=== PATIENT | female | born 1990 | race Caucasian/White ===

== ENCOUNTER 2017-12-11 15:10 | Emergency (ER) | payer BC, MEDICAID ==
[2017-12-11 16:12] VITALS: BP 100/52
--- NOTE | 2017-12-11 16:53 | EDM.PDOC ---
ED HPI GENERAL MEDICAL PROBLEM - General Chief Complaint: Lower Extremity Injury/Pain Stated Complaint: INJURED TOE Time Seen by Provider: 12/11/17 16:25 Source of Information: Reports: Patient, Family History Limitations: Reports: No Limitations - History of Present Illness INITIAL COMMENTS - FREE TEXT/NARRATIVE: Monica presents today for complaints of pain to right 3rd toe. she reports she jammed the toe when she missed a step. She now complains of pain. She denies any other injury. 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 Psychiatric History: Reports: Anxiety, Depression - Past Surgical History HEENT Surgical History: Reports: Eye Surgery Social & Family History - Tobacco Use Smoking Status *Q: Never Smoker Review of Systems - Review of Systems Review Of Systems: See Below Constitutional: Reports: No Symptoms Eyes: Reports: No Symptoms Ears: Reports: No Symptoms Nose: Reports: No Symptoms Mouth/Throat: Reports: No Symptoms Respiratory: Reports: No Symptoms Cardiovascular: Reports: No Symptoms GI/Abdominal: Reports: No Symptoms Musculoskeletal: Reports: Foot Pain, Other (Pain to right 3rd toe, patient jammed the toe when walking on stairs at 1430 today. ) Skin: Reports: Bruising Neurological: Reports: No Symptoms Psychiatric: Reports: No Symptoms ED EXAM, GENERAL - Physical Exam Exam: See Below Free Text/Narrative:: Monica presents today for complaints of right 3rd toe pain since 1430 when she jammed it on a step. Exam Limited By: No Limitations General Appearance: Alert, WD/WN, Mild Distress Respiratory/Chest: No Respiratory Distress, Lungs Clear, Normal Breath Sounds, No Accessory Muscle Use, Chest Non-Tender Cardiovascular: Normal Peripheral Pulses, Regular Rate, Rhythm, No Edema, No Murmur, No Rub Peripheral Pulses: 2+: Radial (L), Radial (R), Dorsalis Pedis (L), Dorsalis Pedis (R) Extremities: No Pedal Edema, Normal Capillary Refill, Other (Pain to right 3rd toe, limited ROM no other injuries identified. ) Neurological: Alert, Oriented, CN II-XII Intact, Normal Cognition, Normal Gait, No Motor/Sensory Deficits Psychiatric: Normal Affect, Normal Mood Skin Exam: Warm, Dry, Intact, Normal Color, No Rash Course - Vital Signs Last Recorded V/S: Last Vital Signs Temp 36.7 C 12/11/17 16:38 Pulse 67 12/11/17 16:38 Resp 15 12/11/17 16:38 BP 100/52 L 12/11/17 16:38 Pulse Ox 99 12/11/17 16:38 - Orders/Labs/Meds Orders: Active Orders 24 hr Category Date Time Status Toes Third Digit Rt T7 [CR] Stat Exams 12/11/17 16:48 Taken - Radiology Interpretation Free Text/Narrative:: X-ray shows minimally displaced 3rd phalange fracture. We will ciarra tape the toe, provide post-op shoe and referral to podiatry. Departure - Departure Time of Disposition: 17:12 Disposition: Home, Self-Care 01 Condition: Good Clinical Impression: Fracture of third toe, left, closed - Discharge Information Instructions: Toe Fracture, [id number] Referrals: PCP,None [Primary Care Provider] - Forms: ED Department Discharge Additional Instructions: You have been evaluated and treated for closed fracture of the 3rd phalange, minimally displaced. Keep the toe ciarra taped to the 2nd toe at all times. Wear the post op shoe when up and at rest. Follow up with podiatry in the next 7 to 10 days for further management. You may take ibuprofen and acetaminophen as needed for pain. Use rest, ice and elevate your foot to decrease pain. Return to the emergency room for worsening, issues or concerns. - My Orders Last 24 Hours: My Active Orders 12/11/17 16:48 Toes Third Digit Rt T7 [CR] Stat - Assessment/Plan Last 24 Hours: My Active Orders 12/11/17 16:48 Toes Third Digit Rt T7 [CR] Stat Assessment:: Fracture of third toe, left, closed Toe ciarra taped to the 2nd toe at all times. Post op shoe Podiatry referral Plan: Fracture of third toe, left, closed Patient evaluated and treated for closed fracture of the 3rd phalange, minimally displaced. Keep the toe ciarra taped to the 2nd toe at all times. Wear the post op shoe when up and at rest. Follow up with podiatry in the next 7 to 10 days for further management. Take ibuprofen and acetaminophen as needed for pain. Use rest, ice and elevate foot to decrease pain. Return to the emergency room for worsening, issues or concerns.
--- NOTE | 2017-12-14 08:38 | CR ---
Toes Third Digit Rt T7 CLINICAL HISTORY: Pain, injury third toe FINDINGS: There is a cortical irregularity in the distal aspect of the third proximal phalanx which m ay represent a nondisplaced fracture IMPRESSION: Possible nondisplaced fracture of the third proximal phalanx. Short-term repeat exam is r ecommended.
== END 2017-12-11 17:32 | disposition home or self-care (01) ==
LOC: JP.ED 15:10
DX: S92.502A Displaced unspecified fracture of left lesser toe(s), initial encounter for closed fracture (principal); Z91.040 Latex allergy status; W10.9XXA Fall (on) (from) unspecified stairs and steps, initial encounter
CPT/HCPCS: 73660-26-T7; 73660-T7; 99283

== ENCOUNTER 2020-12-30 16:19 | Emergency (ER) | payer BC, MEDICAID ==
[2020-12-30 16:37] VITALS: BP 143/86; PULSE 57
--- NOTE | 2020-12-30 17:30 | EDM.PDOC ---
ED HPI GENERAL MEDICAL PROBLEM - General Chief Complaint: Genitourinary Problem Stated Complaint: POSS. YEAST INF. 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 (see below) (None) - Related Data Allergies Allergy/AdvReac Type Severity Reaction Status Date / Time latex Allergy Swelling Verified 12/30/20 16:40 Home Meds: Home Meds Norethindrone [Tulana] 1 tab PO DAILY 12/11/17 [History] Past Medical History - Past Health History Medical/Surgical History: Denies Medical/Surgical History HEENT History: Reports: Impaired Vision Genitourinary History: Reports: STD 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: , 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 Psychiatric History: Reports: Anxiety, Depression - Past Surgical History HEENT Surgical History: Reports: Eye Surgery Social & Family History - Tobacco Use Tobacco Use Status *Q: Never Tobacco User ED ROS GENERAL - Review of Systems Review Of Systems: See Below Constitutional: Reports: No Symptoms GI/Abdominal: Reports: No Symptoms : Reports: Discharge, Pain, Other (Older, pain, itch/irritation) Psychiatric: Reports: No Symptoms Hematologic/Lymphatic: Reports: No Symptoms ED EXAM, RENAL/ - Physical Exam Exam: See Below Exam Limited By: No Limitations General Appearance: Alert, WD/WN, Moderate Distress Cardiovascular: Normal Peripheral Pulses, Regular Rate, Rhythm, No Edema GI/Abdominal: Normal Bowel Sounds, Soft, Non-Tender, No Organomegaly, No Distention (Female) Exam: Normal External Exam, Vaginal Discharge. No: Normal Speculum Exam, Normal Bimanual Exam, Uterine Tenderness, Vaginal Lesions, Vaginal Tears Neurological: Alert, Oriented, CN II-XII Intact, Normal Cognition, Normal Gait Skin Exam: Warm, Dry, Intact Course - Vital Signs Last Recorded V/S: Last Vital Signs Temp 36.4 C 12/30/20 16:46 Pulse 57 L 12/30/20 16:46 Resp 16 12/30/20 16:46 BP 143/86 H 12/30/20 16:46 Pulse Ox 100 12/30/20 16:46 - Orders/Labs/Meds Orders: Collection for LILY and wet prep sent to lab for evaluation. Departure - Departure Time of Disposition: 18:40 Disposition: Home, Self-Care 01 Condition: Fair Clinical Impression: Bacterial vaginosis - Discharge Information Instructions: Bacterial Vaginosis, [id number] Referrals: PCP,None [Primary Care Provider] - Forms: ED Department Discharge Additional Instructions: NO ALCOHOL during time of treatment and until 48 hours after last pill due to side effects of medication and alcohol use. If not better by end of treatment followup with PCP Sepsis Event Note (ED) - Evaluation Sepsis Screening Result: No Definite Risk - Focused Exam Vital Signs: Vital Signs Temp Pulse Resp BP Pulse Ox 12/30/20 16:46 36.4 C 57 L 16 143/86 H 100 12/30/20 16:35 36.4 C 57 L 16 143/86 H 100
== END 2020-12-30 18:41 | disposition home or self-care (01) ==
LOC: JP.ED 16:19
DX: N76.0 Acute vaginitis (principal); B96.89 Other specified bacterial agents as the cause of diseases classified elsewhere; Z91.040 Latex allergy status
CPT/HCPCS: 87210; 99283

== ENCOUNTER 2024-11-14 10:57 | Emergency (ER) | payer BC, MEDICAID ==
[2024-11-14 11:17] VITALS: PULSE 69
[2024-11-14 11:24] VITALS: BP 120/88
[2024-11-14] MEDS: Ondansetron 4 MG Tab.DIS PO ONE (11:40)
== END 2024-11-14 12:14 | disposition home or self-care (01) ==
LOC: JP.ED 10:57
DX: K08.89 Other specified disorders of teeth and supporting structures (principal); F19.10 Other psychoactive substance abuse, uncomplicated; Z91.040 Latex allergy status; Z79.899 Other long term (current) drug therapy
CPT/HCPCS: 99283; Q0162